=== PATIENT | female | born 1980 | race Caucasian/White ===

== ENCOUNTER 2017-03-25 12:24 | Emergency (ER) | payer OTHER ==
--- NOTE | ~2017-03-25 | ER ---
PATIENT'S NAME: [facility] AGE: 36 Y [address] ROOM: [place] [id number] LOCATION: [facility] ADMIT DATE: 03/25/2017 ER/Outpatient Report DISCHARGE DATE: 03/25/2017 FAMILY PHYSICIAN: PHYSICIAN, NO ATTENDING PHYSICIAN: Michelle Canales TIME SEEN: 1305 hours. HISTORY OF PRESENT ILLNESS: The patient is a 36-year-old female who said she was out in the yard with her 2 small kids when she suddenly felt kind of lightheaded and dizzy. The patient initially evidently called EMS, but then refused transfer. She said that she could feel a rapid heartbeat. Denied any shortness of breath or chest pain. ALLERGIES: NONE. MEDICAL HISTORY: Has included previous anxiety attacks. Denies any anemia or heart murmurs. SURGERIES: Include x3 and tubal ligation. SOCIAL HISTORY: Smoker of half a pack a day. Denies alcohol. REVIEW OF SYSTEMS: GENERAL: No recent illness or fevers. HEAD AND EENT: No complaints of headache, sore throat, or neck pain. RESPIRATORY: No cough or shortness of breath. CARDIOVASCULAR: Heart palpitations. No chest pain. GASTROINTESTINAL: Denied any change in her bowel habits or black stools. GENITOURINARY: Had just finished her period. SKIN: No bruising. NEURO/PSYCH: Says she does feel anxious at times. PHYSICAL EXAMINATION: VITAL SIGNS: Blood pressure was 128/80, her pulse was initially 139, respiratory rate 18, temperature 98.7, and her O2 sats were 98%. GENERAL APPEARANCE: Appeared alert, in no distress. HEENT: Head: Normocephalic. Eyes: PERRLA. No icterus. Nose: Septum midline. Mouth: Teeth in good repair. Buccal membranes moist. NECK: Supple. Thyroid is not enlarged. PATIENT'S NAME: [facility] AGE: 36 Y [address] ROOM: [place] [id number] LOCATION: [facility] ADMIT DATE: 03/25/2017 ER/Outpatient Report DISCHARGE DATE: 03/25/2017 FAMILY PHYSICIAN: PHYSICIAN, NO ATTENDING PHYSICIAN: Michelle Canales LUNGS: Breath sounds clear throughout. HEART: Rhythm appeared regular with auscultation. ABDOMEN: Soft and nontender. SKIN: No rash or bruising present. LABORATORY DATA: [place]: [place] [id number], her hemoglobin was 14.9. CMS was unremarkable. DIAGNOSTIC DATA: EKG showed normal sinus rhythm, rate was 63. ASSESSMENT: Heart palpitations, possibly related to anxiety. PLAN: Encourage fluids today. Avoid caffeine. Follow up with her primary care if she has any further episodes. The patient verbalized understanding of our lab and EKG findings and agreed. CEFERINO WEAVER FOR MD GRETA CORNEJO/gustavo /[id number] d: 03/25/171857 t: 04/03/172040, OUTPATIENT REPORT
[~2017-03-25 12:24] MED LIST: MOTRIN800 MG PO; PERCOCET 5-3251 EACH PO; PRENATAL 1+1)(P1 TAB PO; TUMS REGULAR ST1 TAB PO
[2017-03-25 13:14] LABS: BASOPHIL % 0.4 %; EOSINOPHIL # 0.1 K/uL (0.0-0.5); EOSINOPHIL % 0.8 %; HEMATOCRIT 43.8 % (33.0-46.0); HEMOGLOBIN 14.9 g/dL (11.0-15.0); IMMATURE GRANULOCYTE % 0.4 %; LYMPHOCYTE # 2.6 K/uL (0.8-4.0); MCH 31.4 pg (27.0-34.0); MCV 92.4 fl (83.0-98.0); MONOCYTE # 0.6 K/uL (0.0-1.0); MONOCYTE % 5.9 %; MPV 9.3 fl (9.4-12.4); NEUTROPHIL # (ANC) 6.7 K/uL (1.8-7.8); NEUTROPHIL % 66.5 %; NRBC % 0 /100WBC (0-0.00); PLATELET COUNT 245 K/uL (150-450); RDW-CV 12.7 % (11.9-14.6)
[2017-03-25 13:26] LABS: RBC 4.74 M/uL (3.50-5.50)
[2017-03-25 13:40] LABS: ALBUMIN 3.7 gm/dL (3.5-5.0); ALK PHOS 57 IU/L (33-138); ALT 15 IU/L (12-78); ANION GAP 8.8 (10.0-19.0); AST 13 IU/L (10-40); BLOOD UREA NITROGEN 10 mg/dL (6-24); CALCIUM 8.6 mg/dL (8.5-10.5); CHLORIDE 108 mMol/L (96-110); CO2 27 mMol/L (22-32); CREATININE 0.8 mg/dL (0.5-1.1); POTASSIUM 3.8 mMol/L (3.7-5.1); SODIUM 140 mMol/L (135-145); TOTAL BILIRUBIN 0.3 mg/dL (0.0-1.5)
== END 2017-03-25 13:57 | disposition disaster alternative care site (69) ==
LOC: GMED 12:24
PROVIDERS: Family Medicine
DX: F41.9 Anxiety disorder, unspecified (principal); F17.210 Nicotine dependence, cigarettes, uncomplicated